=== PATIENT | male | born 1985 | race American Indian/Alaskan Native ===

== ENCOUNTER 2019-09-13 00:24 | Emergency (ER) | payer SELFPAY ==
[2019-09-13 00:51] VITALS: BP 129/88
--- NOTE | 2019-09-13 01:22 | XRay Report ---
LEFT HAND 2 VIEWS INDICATION / CLINICAL INFORMATION: Left hand pain and swelling. COMPARISON: None available. FINDINGS: BONES and JOINT(S): An acute boxer's fracture is noted without an associated dislocation. No signific ant arthritis. SOFT TISSUES: Mild to moderate edema is seen medially along the hand. ADDITIONAL FINDINGS: None. IMPRESSION: Acute left boxer's fracture. Signer Name: Earl Valencia MD Signed: 09/13/2019 1:17 AM Workstation Name: [id number]
--- NOTE | 2019-09-13 04:54 | Emergency Department Report ---
ED Upper Extremity Inj HPI - General Chief Complaint: Extremity Injury, Upper Stated Complaint: LEFT HAND INJURY Time Seen by Provider: 09/13/19 04:21 Source: patient Mode of arrival: Ambulatory Limitations: No Limitations - History of Present Illness Initial Comments: pt is a 34 y/o aam who present for left hand pain and swelling s/p hand versus wall at home. pt now complains of 5/10 hand pain and there is no numbness rom restricted by pain, pain is relieved by nothing, pain is exacerbated by movement. Complaint: Injury to:: left Onset/Timin -: days(s) Other Extremity Injury: Hand: Left Other Injuries: none Handedness: right Place: home Severity scale (0 -10): 5 Improves With: none Worsens With: movement of extremity Context: direct blow Associated Symptoms: denies other symptoms - Related Data Previous Rx's Medication Instructions Recorded Last Taken Type HYDROcodone/APAP 5-325 [Campo 1 each PO Q6HR PRN #12 tablet 09/13/19 Unknown Rx 5-325 mg TAB] Allergies Allergy/AdvReac Type Severity Reaction Status Date / Time No Known Allergies Allergy Unverified 09/13/19 00:51 ED Review of Systems ROS: Stated complaint: LEFT HAND INJURY Other details as noted in HPI Constitutional: denies: chills, fever Eyes: denies: eye pain, eye discharge, vision change ENT: denies: ear pain, throat pain Respiratory: denies: cough, shortness of breath, wheezing Cardiovascular: denies: chest pain, palpitations Endocrine: no symptoms reported Gastrointestinal: denies: abdominal pain, nausea, diarrhea Genitourinary: as per HPI Musculoskeletal: other (hand pain swelling ) Skin: denies: rash, lesions Neurological: denies: headache, weakness, paresthesias Psychiatric: denies: anxiety, depression Hematological/Lymphatic: denies: easy bleeding, easy bruising ED Past Medical Hx - Past Medical History Previous Medical History?: No - Surgical History Past Surgical History?: No - Social History Smoking Status: Current Every Day Smoker Substance Use Type: Marijuana - Medications Home Medications: Home Medications Medication Instructions Recorded Confirmed Last Taken Type HYDROcodone/APAP 5-325 [Campo 1 each PO Q6HR PRN #12 tablet 09/13/19 Unknown Rx 5-325 mg TAB] ED Physical Exam - General Limitations: No Limitations General appearance: alert, in no apparent distress - Head Head exam: Present: atraumatic, normocephalic - Eye Eye exam: Present: normal appearance - ENT ENT exam: Present: mucous membranes moist - Neck Neck exam: Present: normal inspection - Respiratory Respiratory exam: Present: normal lung sounds bilaterally. Absent: respiratory distress, wheezes, stridor - Cardiovascular Cardiovascular Exam: Present: regular rate, normal rhythm, normal heart sounds. Absent: systolic murmur, diastolic murmur, rubs, gallop - GI/Abdominal GI/Abdominal exam: Present: soft, normal bowel sounds. Absent: distended, tenderness, bruit, hernia - Rectal Rectal exam: Present: deferred - Extremities Exam Extremities exam: Present: normal inspection, full ROM, tenderness, normal capillary refill - Expanded Upper Extremity Exam Left Hand Wrist exam: Present: tenderness, swelling. Absent: abrasion, laceration, ecchymosis, deformity, crepidus, dislocation, erythema, amputation, nail avulsion, subungual hematoma Neuro motor exam: Present: wrist extension intact, thumb opposition intact, thumb IP flexion intact, thumb adduction intact, fingers 2-5 abduction intact Neurosensory exam: Present: radial nerve intact Vascular: Present: normal capillary refill, radial pulse - Back Exam Back exam: Present: normal inspection, full ROM. Absent: tenderness - Neurological Exam Neurological exam: Present: alert, oriented X3, CN II-XII intact, normal gait, reflexes normal. Absent: motor sensory deficit - Psychiatric Psychiatric exam: Present: normal affect, normal mood - Skin Skin exam: Present: warm, dry, intact, normal color. Absent: rash ED Course Vital Signs 09/13/19 00:46 Temperature 98.6 F Pulse Rate 80 Respiratory 18 Rate Blood Pressure 129/88 O2 Sat by Pulse 99 Oximetry ED Medical Decision Making - Radiology Data Radiology results: report reviewed, image reviewed Ordering Physician: ED MD ROLA Date of Service: 09/13/19 Procedure(s): XR hand 2V LT Accession Number(s): [id number] cc: ED MD ROLA Fluoro Time In Minutes: LEFT HAND 2 VIEWS INDICATION / CLINICAL INFORMATION: Left hand pain and swelling. COMPARISON: None available. FINDINGS: BONES and JOINT(S): An acute boxer's fracture is noted without an associated dislocation. No significant arthritis. SOFT TISSUES: Mild to moderate edema is seen medially along the hand. ADDITIONAL FINDINGS: None. IMPRESSION: Acute left boxer's fracture. Signer Name: Earl Valencia MD Signed: 09/13/2019 1:17 AM Workstation Name: [email or web address] Transcribed By: [place] Dictated By: Earl Valencia MD Electronically Authenticated By: Earl Valencia MD Signed Date/Time: 09/13/19116 DD/ 6 TD/TT: - Medical Decision Making this is a boxers fracture left hand, xray: acute boxer's fracture is noted without an associated dislocation. plan: velcro boxers splint, , distal pules intact, pt will follow up with orthopedics, hydrocodone prn pain, pt dc'd to self in stable condition. Critical care attestation.: If time is entered above; I have spent that time in minutes in the direct care of this critically ill patient, excluding procedure time. ED Disposition Clinical Impression: Boxers fracture Qualifiers: Encounter type: initial encounter Fracture type: closed Qualified Code(s): S62.339A - Displaced fracture of neck of unspecified metacarpal bone, initial encounter for closed fracture Disposition: DC-01 TO HOME OR SELFCARE Is pt being admited?: No Does the pt Need Aspirin: No Condition: Stable Instructions: Boxer Fracture (ED) Prescriptions: HYDROcodone/APAP 5-325 [Campo 5-325 mg TAB] 1 each PO Q6HR PRN #12 tablet PRN Reason: Pain Referrals: HUNTER WELDON MD [Staff Physician] - 3-5 Days Forms: Work/School Release Form(ED) Time of Disposition: 05:23
[2019-09-13] MEDS ORDERED: HYDROcodone/ACETAMINOPHEN 5-325 MG TAB PO ONE (05:19)
== END 2019-09-13 06:00 | disposition home or self-care (01) ==
LOC: ED 00:24
DX: S62.92XA Unspecified fracture of left hand, initial encounter for closed fracture (principal); F17.200 Nicotine dependence, unspecified, uncomplicated; F12.10 Cannabis abuse, uncomplicated; W22.01XA Walked into wall, initial encounter; Y93.89 Activity, other specified; Y92.89 Other specified places as the place of occurrence of the external cause; Y99.8 Other external cause status